=== PATIENT | male | born 1950 | race African-American/Black ===

== ENCOUNTER 2022-10-15 09:23 | Emergency (ER) | payer MEDICARE, MEDICAID ==
[~2022-10-15] VITALS: Ht 172.7 cm; Wt 80.0 kg
[~2022-10-15 09:23] MED LIST: AMLO10TA80 PO; APIX5TAB PO; ATOR10TA PO; ATOR10TA69 PO; CARV25TA47 PO; COR12 PO; DAPA10TA PO; METH-372 PO; POTA-79 PO; SACU1TAB7 MT; SACU1TAB7 PO; SOTA120T PO
[2022-10-15 09:39] VITALS: BP 126/76
[2022-10-15 11:02] LABS: BASOPHILS % 1.1 % (0.0-2.0); EOSINOPHILS % 2.7 % (0.0-5.0); HEMATOCRIT. 44.8 % (42.0-52.0); HEMOGLOBIN. 14.6 g/dL (14.0-18.0); LYMPHOCYTES % 7.1 % (20.0-50.0); MEAN CORPUSCULAR HEMOGLOBIN 29.9 pg (28.0-32.0); MEAN CORPUSCULAR VOLUME 91.8 fL (80.0-94.0); MEAN PLATELET VOLUME 9.9 fl (7.4-10.4); MONOCYTES % 9.1 % (2.0-8.0); PLATELET 232 x1000/uL (130-400); RED BLOOD CELL COUNT 4.88 mill/uL (4.7-6.1); RED CELL DISTRIBUTION WIDTH 13.5 % (11.6-14.6)
[2022-10-15 11:15] LABS: CHLORIDE 110 mEq/L (98-107)
[2022-10-15] MEDS ORDERED: AMOX1TAB16 MT (11:52)
== END 2022-10-15 12:03 | disposition home or self-care (01) ==
LOC: ER 09:23
DX: J06.9 Acute upper respiratory infection, unspecified (principal); I10 Essential (primary) hypertension; I48.91 Unspecified atrial fibrillation; Z79.899 Other long term (current) drug therapy; Z90.49 Acquired absence of other specified parts of digestive tract
CPT/HCPCS: 36415; 71045; 80053; 83880; 85025; 93005; 99284

== ENCOUNTER 2023-02-14 16:47 | Emergency (ER) | payer MEDICARE, MEDICAID ==
[~2023-02-14] VITALS: Ht 180.3 cm; Wt 100.0 kg
[~2023-02-14 16:47] MED LIST changes: +AMOX1TAB16 MT; +POTA-354 PO; -POTA-79 PO
[2023-02-14 17:24] VITALS: O2SAT 98
[2023-02-14 19:00] VITALS: BP 128/59
[2023-02-14] MEDS ORDERED: ACETAMINOPHEN 325MG TABLET PO ONE (19:00)
[2023-02-14] MEDS ORDERED: IBUPROFEN 600MG TABLET PO ONE (19:00)
[2023-02-14 19:15] LABS: HEMATOCRIT. 45.6 % (42.0-52.0); HEMOGLOBIN. 14.7 g/dL (14.0-18.0); MEAN CORPUSCULAR HEMOGLOBIN 29.6 pg (28.0-32.0); MEAN CORPUSCULAR VOLUME 91.6 fL (80.0-94.0); MEAN PLATELET VOLUME 9.7 fl (7.4-10.4); PLATELET 156 x1000/uL (130-400); RED BLOOD CELL COUNT 4.97 mill/uL (4.7-6.1); RED CELL DISTRIBUTION WIDTH 14.5 % (11.6-14.6)
[2023-02-14 19:17] LABS: CHLORIDE 109 mEq/L (98-107)
[2023-02-14 20:17] LABS: PLATELET ESTIMATE NORMAL
[2023-02-14] MEDS ORDERED: TOPUD MT (20:45)
[2023-02-14 21:13] VITALS: PULSE 73; RESP 18; TEMP 98.4
== END 2023-02-14 21:13 | disposition home or self-care (01) ==
LOC: ER 16:47
DX: R05.9 Cough, unspecified (principal); R50.9 Fever, unspecified; Z79.899 Other long term (current) drug therapy; Z90.49 Acquired absence of other specified parts of digestive tract; Z20.822 Contact with and (suspected) exposure to COVID-19
CPT/HCPCS: 99284; 71046; 87426; 80053; 85025; 87804 ×2; 36415; C9803

== ENCOUNTER 2023-06-28 12:29 | Inpatient (IN) | payer MEDICARE, OTHER ==
[~2023-06-28] VITALS: Ht 180.3 cm; Wt 100.2 kg
[~2023-06-28 12:29] MED LIST changes: +TOPUD MT
[2023-06-28 13:05] LABS: HEMATOCRIT. 45.4 % (42.0-52.0); HEMOGLOBIN. 14.3 g/dL (14.0-18.0); MEAN CORPUSCULAR HEMOGLOBIN 29.4 pg (28.0-32.0); MEAN CORPUSCULAR HGB CONC 31.5 g/dL (31.0-37.0); MEAN CORPUSCULAR VOLUME 93.4 fL (80.0-94.0); MEAN PLATELET VOLUME 10.5 fl (7.4-10.4); PLATELET 149 x1000/uL (130-400); RED BLOOD CELL COUNT 4.86 mill/uL (4.7-6.1); RED CELL DISTRIBUTION WIDTH 14.7 % (11.6-14.6); WHITE BLOOD COUNT 6.9 x1000/uL (4.5-11.0)
[2023-06-28 13:08] LABS: DIFFERENTIAL COMMENT 1
[2023-06-28 14:05] LABS: HYPOCHROMASIA 1+; PLATELET ESTIMATE NORMAL
[2023-06-28 14:06] LABS: CHLORIDE 115 mEq/L (98-107); INDEX HEMOLYSI 1 (1-3); INDEX ICTERIC 1 (1-4); INDEX LIPEMIC 1 (1-3); POTASSIUM 4.3 mEq/L (3.5-5.1); SODIUM 145 mEq/L (136-145)
[2023-06-28 14:13] LABS: ALANINE AMINOTRANSFERASE 37 IU/L (13-61); ALBUMIN 3.3 g/dL (3.4-5.0); ASPARTATE AMINOTRANSFERASE 23 IU/L (15-37); BILIRUBIN TOTAL 1.1 mg/dL (0.1-1.0); CALCIUM 9.3 mg/dL (8.5-10.1); CARBON DIOXIDE 26 mEq/L (21-32); CREATININE 1.1 mg/dL (0.6-1.3); GLUCOSE 115 mg/dL (70-105); PROTEIN TOTAL 6.9 g/dL (6.0-8.3); UREA NITROGEN BLOOD 17 mg/dL (7-21)
[2023-06-28] MEDS ORDERED: NITROGLYCERIN 0.4MG TABLET SL SL PRN (14:45)
[2023-06-28] MEDS ORDERED: ASPIRIN 81MG TABLET PO ONE (14:45)
[2023-06-28 15:12] LABS: D-DIMER 0.34 mg/L FEU (<0.50); INR 1.2; PARTIAL THROMBOPLASTIN TIME 36.7 sec (23.4-31.0); PROTHROMBIN TIME 12.6 sec (9.6-11.0)
[2023-06-28 15:27] LABS: NT PRO B-TYPE NATRIURETIC PEP 3842 pg/mL (5-125); TROPONIN I HIGH SENSITIVITY 12 ng/L (<78)
[2023-06-28 18:03] LABS: TROPONIN I HIGH SENSITIVITY 16 ng/L (<78)
[2023-06-28 20:00] VITALS: BP 147/75; PULSE 70; RESP 18; TEMP 98.9
[2023-06-28 20:05] VITALS: BP 147/75; PULSE 70; RESP 18; TEMP 98.9
[2023-06-28] MEDS ORDERED: MAGNESIUM/ALUMINUM HYDROXIDE/SIMETHICONE 30ML UDC PO PRN (21:30)
[2023-06-28] MEDS ORDERED: CLONIDINE 0.1MG TABLET PO PRN (21:30)
[2023-06-28] MEDS ORDERED: ONDANSETRON HCL 4MG/2ML INJ IV PRN (21:30)
[2023-06-28] MEDS ORDERED: ACETAMINOPHEN 325MG TABLET PO PRN ×2 (21:30)
[2023-06-28] MEDS ORDERED: GUAIFENESIN 200MG/10ML SUGAR FREE UDC PO PRN (21:30)
[2023-06-28] MEDS ORDERED: DOCUSATE SODIUM 100MG CAPSULE PO PRN (21:30)
[2023-06-28] MEDS ORDERED: TAMS-11 PO (21:56)
[2023-06-28] MEDS ORDERED: vibegron PO (21:56)
[2023-06-28] MEDS ORDERED: MEX150 PO (21:56)
[2023-06-28] MEDS ORDERED: METH-371 PO (21:56)
[2023-06-28] MEDS ORDERED: TAMSULOSIN HCL 0.4MG SR CAPSULE PO SCH (22:15)
[2023-06-28] MEDS ORDERED: DAPAGLIFLOZIN PROPANEDIOL 10 MG PO SCH (22:15)
[2023-06-28] MEDS ORDERED: CARVEDILOL 12.5MG TABLET PO SCH (22:15)
[2023-06-28] MEDS ORDERED: SACUBITRIL/VALSARTAN 49MG/51MG TABLET PO SCH (22:15)
[2023-06-28 22:55] VITALS: BP 147/75; PULSE 70; RESP 18; TEMP 97.8
[2023-06-28] MEDS ORDERED: SOTALOL HCL 120MG TABLET PO SCH (23:30)
[2023-06-28] MEDS: MEXILETINE HCL 150MG CAPSULE PO SCH (23:45)
[2023-06-29] VITALS: BP 147/82; PULSE 66; RESP 18; TEMP 97.7
[2023-06-29 04:00] VITALS: BP 147/87; PULSE 70; RESP 20; TEMP 97.9
[2023-06-29] MEDS ORDERED: NON FORMULARY PATIENT HOME MED PO SCH (04:30)
[2023-06-29] MEDS: FUROSEMIDE 40MG/4ML VIAL IVP SCH ×3 (04:41→18:05)
[2023-06-29] MEDS: MEXILETINE HCL 150MG CAPSULE PO SCH ×3 (06:13→22:19)
[2023-06-29 06:30] LABS: BASOPHILS % 1.6 % (0.0-2.0); DIFFERENTIAL COMMENT 0; EOSINOPHILS % 1.7 % (0.0-5.0); HEMATOCRIT. 43.4 % (42.0-52.0); HEMOGLOBIN. 13.9 g/dL (14.0-18.0); LYMPHOCYTES % 12.7 % (20.0-50.0); MEAN CORPUSCULAR HEMOGLOBIN 29.8 pg (28.0-32.0); MEAN CORPUSCULAR HGB CONC 32.1 g/dL (31.0-37.0); MEAN CORPUSCULAR VOLUME 92.8 fL (80.0-94.0); MEAN PLATELET VOLUME 11.2 fl (7.4-10.4); PLATELET 139 x1000/uL (130-400); RED BLOOD CELL COUNT 4.67 mill/uL (4.7-6.1); RED CELL DISTRIBUTION WIDTH 15.3 % (11.6-14.6); WHITE BLOOD COUNT 6.2 x1000/uL (4.5-11.0)
[2023-06-29 07:16] LABS: INDEX HEMOLYSI 1 (1-3); INDEX ICTERIC 1 (1-4); INDEX LIPEMIC 1 (1-3)
[2023-06-29 07:17] LABS: CHLORIDE 113 mEq/L (98-107); POTASSIUM 3.8 mEq/L (3.5-5.1); SODIUM 144 mEq/L (136-145)
[2023-06-29 07:29] LABS: ALANINE AMINOTRANSFERASE 31 IU/L (13-61); ASPARTATE AMINOTRANSFERASE 22 IU/L (15-37); BILIRUBIN TOTAL 1.2 mg/dL (0.1-1.0); CALCIUM 8.7 mg/dL (8.5-10.1); CARBON DIOXIDE 26 mEq/L (21-32); CHOLESTEROL 107 mg/dL (<200); GLUCOSE 77 mg/dL (70-105); HDL CHOLESTEROL 41 mg/dL (40-59); LDL CHOLESTEROL 63 mg/dL (5-100); PROTEIN TOTAL 6.5 g/dL (6.0-8.3); TRIGLYCERIDE 68 mg/dL (0-150); UREA NITROGEN BLOOD 14 mg/dL (7-21)
[2023-06-29 08:00] VITALS: BP 142/79; PULSE 64; RESP 18; TEMP 97.7; TEMP 99.7
[2023-06-29] MEDS ORDERED: POTASSIUM CHLORIDE 20MEQ TABLET SR PO SCH (09:00)
[2023-06-29] MEDS: APIXABAN 5 MG TABLET PO SCH ×2 (09:09→20:48)
[2023-06-29 12:00] VITALS: BP 147/86; PULSE 69; RESP 18; TEMP 97.5
[2023-06-29] MEDS: VIBEGRON 75 MG PO SCH (15:08)
[2023-06-29 16:00] VITALS: BP 121/69; PULSE 66; RESP 18; TEMP 98.3
[2023-06-29] MEDS ORDERED: METH-371 PO ×2 (17:18→17:29)
[2023-06-29] MEDS: SACUBITRIL PO SCH (18:05)
[2023-06-29] MEDS: VALSARTAN PO SCH (18:05)
[2023-06-29] MEDS: TAMSULOSIN HCL 0.4MG SR CAPSULE PO SCH (18:48)
[2023-06-29 20:00] VITALS: BP 135/79; PULSE 66; RESP 18; TEMP 97.2
[2023-06-29 20:23] LABS: CLARITY URINE CLEAR (CLEAR); COLOR URINE YELLOW (YELLOW); GLUCOSE URINE 3+ (NEGATIVE); KETONES URINE NEGATIVE (NEGATIVE); LEUKOCYTE ESTERASE URINE NEGATIVE (NEGATIVE); NITRITE URINE NEGATIVE (NEGATIVE); OCCULT BLOOD URINE NEGATIVE (NEGATIVE); PH URINE 5.5 (4.5-8.0); PROTEIN URINE TRACE (NEGATIVE); SPECIFIC GRAVITY URINE 1.016 (1.005-1.030)
[2023-06-29] MEDS: FAMOTIDINE 20MG TABLET PO SCH (20:48)
[2023-06-29] MEDS: ATORVASTATIN CALCIUM 10MG TABLET PO SCH (20:49)
[2023-06-29 20:50] LABS: *AMPHETAMINES SCREEN URINE NEGATIVE (NEGATIVE); *BARBITURATES SCREEN URINE NEGATIVE (NEGATIVE); *BENZODIAZEPINES SCREEN URINE NEGATIVE (NEGATIVE); *COCAINE SCREEN URINE NEGATIVE (NEGATIVE); CANNABINOID URINE SCREEN NEGATIVE (NEGATIVE); ECSTASY MDMA SCREEN URINE NEGATIVE (NEGATIVE); METHADONE URINE SCREEN NEGATIVE (NEGATIVE); OPIATES URINE SCREEN NEGATIVE (NEGATIVE); PHENCYCLIDINE URINE SCREEN NEGATIVE (NEGATIVE)
[2023-06-29 21:31] LABS: WBC URINE 0-2 /hpf (0-2)
[2023-06-29 21:32] LABS: BACTERIA URINE NONE SEEN; RBC URINE 0-2 /hpf (0-2); SQUAMOUS EPITHELIAL CELL URINE NONE SEEN /lpf (RARE/1+)
[2023-06-30] VITALS: BP 132/82; PULSE 54; RESP 18; TEMP 97.3
[2023-06-30 04:00] VITALS: BP 137/82; PULSE 69; RESP 16; TEMP 97.2
[2023-06-30] MEDS: MEXILETINE HCL 150MG CAPSULE PO SCH ×3 (05:34→22:04)
[2023-06-30] MEDS: FUROSEMIDE 40MG/4ML VIAL IVP SCH ×2 (06:49→17:06)
[2023-06-30 08:00] VITALS: BP 125/67; PULSE 76; RESP 16; TEMP 97.6
[2023-06-30] MEDS: SACUBITRIL PO SCH ×2 (09:19→17:05)
[2023-06-30] MEDS: VALSARTAN PO SCH ×2 (09:19→17:05)
[2023-06-30] MEDS: APIXABAN 5 MG TABLET PO SCH ×2 (09:19→21:19)
[2023-06-30] MEDS: TAMSULOSIN HCL 0.4MG SR CAPSULE PO SCH (09:19)
[2023-06-30] MEDS: VIBEGRON 75 MG PO SCH (09:19)
[2023-06-30] MEDS: POTASSIUM CHLORIDE 20MEQ TABLET SR PO SCH (09:19)
[2023-06-30 12:00] VITALS: BP 132/55; PULSE 68; RESP 18; TEMP 97.8
[2023-06-30 16:00] VITALS: BP 133/64; PULSE 66; RESP 18; TEMP 97.6
[2023-06-30 20:00] VITALS: BP 135/79; PULSE 68; TEMP 96.7
[2023-06-30] MEDS: FAMOTIDINE 20MG TABLET PO SCH (21:19)
[2023-06-30] MEDS: ATORVASTATIN CALCIUM 10MG TABLET PO SCH (21:19)
[2023-07-01] VITALS: BP 133/77; PULSE 17; RESP 17; TEMP 97.7
[2023-07-01 04:00] VITALS: BP 145/73; PULSE 64; RESP 17; TEMP 97.2
[2023-07-01] MEDS: MEXILETINE HCL 150MG CAPSULE PO SCH ×2 (06:09→13:28)
[2023-07-01] MEDS: FUROSEMIDE 40MG/4ML VIAL IVP SCH (06:24)
[2023-07-01 08:00] VITALS: BP 129/79; PULSE 67; RESP 16; TEMP 97.4
[2023-07-01 09:29] LABS: CALCIUM 9.1 mg/dL (8.5-10.1); CARBON DIOXIDE 33 mEq/L (21-32); CHLORIDE 105 mEq/L (98-107); GLUCOSE 102 mg/dL (70-105); INDEX HEMOLYSI 1 (1-3); INDEX ICTERIC 1 (1-4); INDEX LIPEMIC 1 (1-3); POTASSIUM 3.7 mEq/L (3.5-5.1); SODIUM 143 mEq/L (136-145)
[2023-07-01 09:30] LABS: PHOSPHORUS 4.1 mg/dL (2.5-4.9)
[2023-07-01] MEDS: POTASSIUM CHLORIDE 20MEQ TABLET SR PO SCH (09:34)
[2023-07-01] MEDS: SACUBITRIL PO SCH (09:35)
[2023-07-01] MEDS: TAMSULOSIN HCL 0.4MG SR CAPSULE PO SCH (09:35)
[2023-07-01] MEDS: VALSARTAN PO SCH (09:35)
[2023-07-01] MEDS: VIBEGRON 75 MG PO SCH (09:36)
[2023-07-01 09:37] LABS: UREA NITROGEN BLOOD 18 mg/dL (7-21)
[2023-07-01] MEDS: APIXABAN 5 MG TABLET PO SCH (09:40)
[2023-07-01] MEDS ORDERED: FURO-151 MT ×2 (10:14→10:33)
[2023-07-01 11:49] VITALS: BP 129/70; PULSE 67; RESP 19; TEMP 98
[2023-07-01 11:59] VITALS: BP 129/70; PULSE 67; TEMP 98; O2SAT 98
[2023-07-01 13:28] VITALS: BP 129/70
== END 2023-07-01 14:46 | disposition home or self-care (01) | DRG 291 ==
LOC: ER 12:29 → EDBEDREQTM 18:24 → EDBEDREQ 18:24 → 7WST 21:03
PROVIDERS: ADMIT Hospitalist; ATTEND Hospitalist
DX: I11.0 Hypertensive heart disease with heart failure (principal); I49.01 Ventricular fibrillation; I50.23 Acute on chronic systolic (congestive) heart failure; E44.0 Moderate protein-calorie malnutrition; E78.5 Hyperlipidemia, unspecified; I48.91 Unspecified atrial fibrillation; I25.10 Atherosclerotic heart disease of native coronary artery without angina pectoris; E80.6 Other disorders of bilirubin metabolism; Z79.899 Other long term (current) drug therapy; Z86.79 Personal history of other diseases of the circulatory system; Z79.01 Long term (current) use of anticoagulants; Z95.810 Presence of automatic (implantable) cardiac defibrillator; Z90.49 Acquired absence of other specified parts of digestive tract; Z68.31 Body mass index [BMI] 31.0-31.9, adult; I25.2 Old myocardial infarction; Z87.891 Personal history of nicotine dependence
CPT/HCPCS: 36415; 71045; 80048; 80053; 80061; 80305; 81003; 83735; 83880; 84100; 84439; 84443; 84484; 85025; 85379; 93005; 93306; 97162; 97165; 99285; J1940